=== PATIENT | male | born 1940 | race Caucasian/White ===

== ENCOUNTER 2018-10-18 07:44 | Emergency (ER) | payer MEDICARE ==
[2018-10-18 08:30] LABS: BASOPHILS % (AUTO) 0.3 % (0.0-5.0); EOSINOPHILS % (AUTO) 0.2 % (0.0-8.0); HEMATOCRIT 50.3 % (42-54); LYMPHOCYTES % (AUTO) 12.1 % (21.0-51.0); MEAN CORPUSCULAR HEMOGLOBIN 32.9 pg (27.0-33.0); MEAN CORPUSCULAR HGB CONC 33.7 g/dL (32.0-36.0); MEAN CORPUSCULAR VOLUME 97.7 fL (79-99); MONOCYTES % (AUTO) 5.7 % (3.0-13.0); NEUTROPHILS % (AUTO) 81.7 % (40.0-77.0); PLATELET COUNT (AUTO) 197 K/uL (130-400); RED BLOOD CELL COUNT(AUTO) 5.14 MIL/uL (4.50-6.20); RED CELL DISTRIBUTION WIDTH 14.3 % (11.0-15.5); WHITE BLOOD COUNT (AUTO) 7.7 K/uL (4.8-10.8)
[2018-10-18 08:37] LABS: CREATININE 1.3 mg/dL (0.5-1.5)
[2018-10-18 08:44] LABS: ALBUMIN 3.5 g/dL (3.5-5.0); BILIRUBIN,TOTAL 0.8 mg/dL (0.2-1.0); TOTAL PROTEIN, SERUM 7.2 g/dL (6.0-8.3)
[2018-10-18 08:50] LABS: APPEARANCE,URINE Clear (CLEAR); BILIRUBIN,URINE Negative (NEGATIVE); COLOR,URINE Dark Yellow (YELLOW); GLUCOSE, URINE (UA) Negative (NEGATIVE); KETONES,URINE Trace mg/dL (NEGATIVE); LEUKOCYTE ESTERASE ,URINE Small (NEGATIVE); NITRATE,URINE Negative (NEGATIVE); OCCULT BLOOD,URINE Moderate (NEGATIVE); PROTEIN,URINE POS 2+ (NEGATIVE)
[2018-10-18] MEDS ORDERED: LIDOCAINE HCL 2% VISCOUS 15 ML UDCUP ONE (09:23)
[2018-10-18] MEDS ORDERED: MAG HYDROX/AL HYDROX/SIMETH ES 30 ML SUSP UDCUP ONE (09:23)
[2018-10-18 09:24] LABS: BACTERIA,URINE Rare /HPF (None Seen); SQUAMOUS EPITHELIAL CELL,UR Rare /HPF (0-2); WBC,URINE 26-50 /HPF (0-1)
[2018-10-18] MEDS ORDERED: ASPIRIN 325 MG TABLET ONE (11:10)
== END 2018-10-18 11:34 | disposition home or self-care (01) ==
LOC: EDH 07:44
DX: I48.91 Unspecified atrial fibrillation (principal); I48.92 Unspecified atrial flutter; Z79.82 Long term (current) use of aspirin; Z79.899 Other long term (current) drug therapy
CPT/HCPCS: 36415; 71045; 80053; 81001; 84484; 85025; 87804; 93005

== ENCOUNTER → 2018-11-08 | Outpatient (CLI) | payer MEDICARE | END | disposition home or self-care (01) | LOC: SHCH 09:52 | PROVIDERS: ATTEND Internal Medicine Cardiovascular Disease | DX: I08.2 Rheumatic disorders of both aortic and tricuspid valves (principal); I48.0 Paroxysmal atrial fibrillation | CPT/HCPCS: 93306 ==

== ENCOUNTER → 2018-11-13 | Outpatient (CLI) | payer MEDICARE ==
[2018-11-13] MEDS: REGADENOSON 0.4 MG/5 ML PF SYG IVP SCH (09:57)
== END | disposition home or self-care (01) ==
LOC: SHCH 08:38
PROVIDERS: ATTEND Internal Medicine Cardiovascular Disease
DX: R07.9 Chest pain, unspecified (principal); I48.91 Unspecified atrial fibrillation; R94.39 Abnormal result of other cardiovascular function study
CPT/HCPCS: 78452; 93017; 96374; A9500 ×2; J2785

== ENCOUNTER 2019-03-29 12:00 | Observation (INO) | payer MEDICARE ==
[~2019-03-29] VITALS: Ht 180.3 cm; Wt 98.1 kg
[2019-03-29 13:14] LABS: BASOPHILS % (AUTO) 0.8 % (0.0-5.0); EOSINOPHILS % (AUTO) 1.8 % (0.0-8.0); LYMPHOCYTES % (AUTO) 20.7 % (21.0-51.0); MEAN CORPUSCULAR HEMOGLOBIN 33.6 pg (27.0-33.0); MEAN CORPUSCULAR HGB CONC 34.5 g/dL (32.0-36.0); MEAN CORPUSCULAR VOLUME 97.3 fL (79-99); MONOCYTES % (AUTO) 7.2 % (3.0-13.0); NEUTROPHILS % (AUTO) 69.5 % (40.0-77.0); PLATELET COUNT (AUTO) 207 K/uL (130-400); RED BLOOD CELL COUNT(AUTO) 5.25 MIL/uL (4.50-6.20); RED CELL DISTRIBUTION WIDTH 14.2 % (11.0-15.5); WHITE BLOOD COUNT (AUTO) 8.1 K/uL (4.8-10.8)
[2019-03-29 13:18] VITALS: BP 141/85
[2019-03-29 13:19] LABS: CREATININE 1.1 mg/dL (0.5-1.5); POTASSIUM 4.1 mmol/L (3.5-5.1)
[2019-03-29] MEDS ORDERED: NAPR220C15 PO (13:39)
[2019-03-29] MEDS ORDERED: TAMS-1 PO (13:39)
[2019-03-29] MEDS ORDERED: MULT-1077 PO (13:39)
[2019-03-29] MEDS ORDERED: FOSI10TA3 PO (13:39)
[2019-03-29] MEDS ORDERED: APIX5TAB PO (13:39)
[2019-03-29] MEDS ORDERED: OMEP-50 PO (13:39)
[2019-04-03] VITALS (25 sets, daily range): BP systolic 92–153; BP diastolic 51–79
[2019-04-03] MEDS ORDERED: LACTATED RINGERS 1000ML 1,000 ML IV ONE (06:06)
[2019-04-03] MEDS ORDERED: CEFAZOLIN SODIUM 1 GM VIAL ONE (06:25)
--- NOTE | 2019-04-03 06:47 | NUR ---
PAIN denies pain at rest has pain radiates down bryant lower extremities Addendum: 04/03/19 at 0650 by CHELO MALDONADO RN RN Amended: Links added.
--- NOTE | 2019-04-03 06:54 | NUR ---
PUPILS Bilateral cataract implants Addendum: 04/03/19 at 0657 by CHELO MALDONADO RN RN Amended: Links added.
[2019-04-03] MEDS ORDERED: SUCCINYLCHOLINE 200MG/10ML SYR ONE (07:01)
[2019-04-03] MEDS ORDERED: LIDOCAINE PF 2% 5ML ABBOJECT ONE ×2 (07:02→10:44)
[2019-04-03] MEDS ORDERED: FENTANYL CITRATE PF 50 MCG/1 ML 2ML VIAL ONE ×2 (07:02→10:53)
[2019-04-03] MEDS ORDERED: PROPOFOL 10 MG/ML 20ML VIAL IV ONE (07:02)
[2019-04-03] MEDS ORDERED: ROCURONIUM 10MG/1ML SYR 10 MG/ML ML ONE (07:02)
[2019-04-03] MEDS ORDERED: DEXAMETHASONE SOD PHOSPHATE 10MG/ML 1ML VIAL ONE (07:02)
[2019-04-03] MEDS ORDERED: BUPIVACAINE/EPI/PF 0.25% 30ML VIAL IJ ONE (07:10)
[2019-04-03] MEDS ORDERED: THROMBIN-JMI 20000 UNIT KIT TP ONE (07:11)
[2019-04-03] MEDS ORDERED: DURAMORPH PF1 MG/ML 10ML AMP IV ONE (07:11)
[2019-04-03] MEDS ORDERED: BACITRACIN 50,000 UNIT VIAL ONE (07:11)
[2019-04-03] MEDS ORDERED: CEFAZOLIN SODIUM 1 GM VIAL IVP ONE (08:00)
[2019-04-03] MEDS ORDERED: KETOROLAC TROMETHAMINE 30MG/ML ONE (10:44)
[2019-04-03] MEDS ORDERED: NEOSTIGMINE 5MG/5ML SYR IV ONE (10:44)
[2019-04-03] MEDS ORDERED: GLYCOPYRROLATE 1 MG/5 ML SYRINGE ONE (10:44)
[2019-04-03] MEDS ORDERED: ONDANSETRON HCL 4 MG/2 ML VIAL ONE (10:47)
[2019-04-03] MEDS ORDERED: ESMOLOL HCL 10 MG/ML 10 ML VIAL ONE (10:56)
[2019-04-03] MEDS: LACTATED RINGERS 1000ML 1,000 ML IV SCH ×2 (11:06→23:55)
[2019-04-03] MEDS ORDERED: PROMETHAZINE HCL 25 MG/ML 1ML AMPULE IM PRN (11:15)
[2019-04-03] MEDS ORDERED: MORPHINE SULFATE 2 MG/ML 1ML SYG IVP PRN (11:15)
[2019-04-03] MEDS: DEXAMETHASONE SOD PHOSPHATE 4 MG/ML 1ML VIAL IVP SCH ×3 (11:15→23:50)
[2019-04-03] MEDS ORDERED: HYDROCODONE/ACETAMINOPHEN 5/325 MG TAB PO PRN (11:15)
[2019-04-03] MEDS ORDERED: SODIUM CHLORIDE 0.9% 10 ML VIAL IVP PRN (11:15)
[2019-04-03] MEDS ORDERED: CEFAZOLIN SODIUM 1 GM VIAL IVP SCH (11:15)
[2019-04-03] MEDS ORDERED: MEPERIDINE-PF 25 MG/ML SYG ONE (11:31)
--- NOTE | 2019-04-03 14:20 | NUR ---
INITIAL MET W PT AND SON AT BEDSIDE, S/P SPINAL SURGERY PER DR. RAM. PT LIVE W SPOUSE WHO HAS ALZHEMIERS, AND HAS PRIVATE CARE FOR HER AND SUFFICIENT DME TO BORROW IF NEEDED. SON [place]IV[place] AND WILL PROVIDE TRANSPORT HOME- STATES DR. RAM DID NOT DISCUSS HH WITH HIM PER SE, BUT BELIEVES HE HAS NO NEED OF IT AND HAS SOMEONE TO LOOK AT THE INCISION IFNEEDED. PREVIOUSLY INDPENDENT, DRIVES, ETC. HOME HAS MANY STAIRS BUT SPOUSE AND PT ONLY USE MAIN FLOOR. FEELS SAFE TO RETURN TO SAME SITUATION; DCP HOME. CM TO FOLLOW Addendum: 04/04/19 at 0812 by LEELA BARCENAS RN CM Amended: Links added.
[2019-04-03] MEDS ORDERED: TAMSULOSIN HCL 0.4 MG CAP.ER.24H PO SCH (21:00)
--- NOTE | 2019-04-03 21:00 | NUR ---
ACTIVITY PATIENT WALKED WITH 2 MARINE TOWER OPERATOR (SON WAS WORRIED HE WOULD NOT TOLERATE WELL AND WANTED SOME MORE STANDING BY HELP IF NEEDED) AND SON ACCOMPANYING. WAKED IN HALLWAY ONCE AROUND FLOOR AND TOLERATED WELL.
[2019-04-04 03:47] VITALS: BP 116/67
[2019-04-04] MEDS: DEXAMETHASONE SOD PHOSPHATE 4 MG/ML 1ML VIAL IVP SCH (05:36)
--- NOTE | 2019-04-04 06:10 | NUR ---
ACTIVITY PATIENT WALKED WITH 2 TELEMARKETING FUNDRAISER ACCOMPANYING. HE DID WELL, STEADY GAIT. WALKED FAST AND TOLERATED WELL.
[2019-04-04 07:39] VITALS: BP 125/72
--- NOTE | 2019-04-04 08:30 | NUR ---
INSTRUCTIONS DISCHARGE INSTRUCTIONS GIVEN TO PATIENT USING TEACH BACK. IV HAS BEEN REMOVED WITH TIP INTACT. DIRECT PRESSURE APPLIED UNTIL BLEEDING CONTROLLED THEN SITE COVERED WITH GAUZE. F/U APPOINTMENT MADE. DRESSING CHANGED PER MD ORDER. YI DRAIN REMOVED WITH TIP INTACT. DIRECT PRESSURE APPLIED UNTIL BLEEDING CONTROLLED THEN SITE COVERED WITH GAUZE AND SECURED WITH TAPE. PATIENT TOLERATED WELL. PENDING RIDE HOME.
[2019-04-04] MEDS ORDERED: LISINOPRIL 10 MG TABLET PO SCH (09:00)
[2019-04-04] MEDS ORDERED: PANTOPRAZOLE SODIUM 40 MG TABLET.DR PO SCH (09:00)
[2019-04-04] MEDS ORDERED: MULTIVITAMIN TABLET PO SCH (09:00)
[2019-04-04] MEDS ORDERED: NAPROXEN SODIUM PO SCH (09:00)
== END 2019-04-04 10:23 | disposition home or self-care (01) ==
LOC: EDSTATUS 12:00 → DAHIP 04-03 05:52 → 4BH 04-03 12:04
PROVIDERS: ADMIT Neurological Surgery; ATTEND Neurological Surgery
DX: M48.061 Spinal stenosis, lumbar region without neurogenic claudication (principal); M35.3 Polymyalgia rheumatica; M67.40 Ganglion, unspecified site; D69.3 Immune thrombocytopenic purpura; I48.91 Unspecified atrial fibrillation; Z96.649 Presence of unspecified artificial hip joint; Z79.899 Other long term (current) drug therapy
CPT/HCPCS: 36415; 63047; 63048 ×2; 72020; 80048; 85025; 88304; 88311; 96374; 96375; 96376 ×2; A4344; A4649 ×4; G0378 ×23; J0330; J0690 ×2; J1100 ×4; J1885; J2001 ×2; J2175; J2274; J2405; J2704; J2710; J3010 ×2; J3490 ×3; J7030; J7120 ×2

== ENCOUNTER → 2019-07-26 | Outpatient (CLI) | payer MEDICARE ==
[~2019-07-26] MED LIST: APIX5TAB PO; FOSI10TA6 PO; MULT-1077 PO; NAPR220C15 PO; OMEP-50 PO; TAMS-1 PO
== END | disposition home or self-care (01) ==
LOC: RAH 07:32
PROVIDERS: ATTEND Internal Medicine Gastroenterology
DX: N20.0 Calculus of kidney (principal); N28.1 Cyst of kidney, acquired; I70.0 Atherosclerosis of aorta; K57.30 Diverticulosis of large intestine without perforation or abscess without bleeding; N40.0 Benign prostatic hyperplasia without lower urinary tract symptoms; M47.815 Spondylosis without myelopathy or radiculopathy, thoracolumbar region
CPT/HCPCS: 74178

== ENCOUNTER 2019-11-19 07:25 | Day surgery (SDC) | payer MEDICARE ==
[2019-11-14 15:38] LABS: BASOPHILS % (AUTO) 0.8 % (0.0-5.0); LYMPHOCYTES % (AUTO) 24.5 % (21.0-51.0); MEAN CORPUSCULAR HEMOGLOBIN 31.8 pg (27.0-33.0); MEAN CORPUSCULAR HGB CONC 32.9 g/dL (32.0-36.0); MEAN CORPUSCULAR VOLUME 96.8 fL (79-99); MONOCYTES % (AUTO) 9.7 % (3.0-13.0); NEUTROPHILS % (AUTO) 61.8 % (40.0-77.0); PLATELET COUNT (AUTO) 200 K/uL (130-400); RED BLOOD CELL COUNT(AUTO) 4.65 MIL/uL (4.50-6.20); RED CELL DISTRIBUTION WIDTH 14.4 % (11.0-15.5); WHITE BLOOD COUNT (AUTO) 6.6 K/uL (4.8-10.8)
[2019-11-14 15:49] LABS: CREATININE 1.2 mg/dL (0.5-1.5); POTASSIUM 4.3 mmol/L (3.5-5.1)
[2019-11-14 15:50] LABS: INR 1.03 (0.85-1.15); PROTHROMBIN TIME 11.1 SEC (9.6-11.6)
[2019-11-14 17:57] VITALS: BP 134/75
[~2019-11-19] VITALS: Ht 180.3 cm; Wt 92.6 kg
[2019-11-19] VITALS (15 sets, daily range): BP systolic 121–165; BP diastolic 62–98
[~2019-11-19 07:25] MED LIST changes: -MULT-1077 PO; -NAPR220C15 PO; -OMEP-50 PO; +OMEP20CA12 PO
[2019-11-19] MEDS: CEFTRIAXONE SODIUM 1 GM IVP SCH ×2 (08:30→10:15)
[2019-11-19] MEDS ORDERED: LACTATED RINGERS 1000ML 1,000 ML IV ONE (08:38)
[2019-11-19] MEDS ORDERED: OXYB5TAB15 PO (08:59)
[2019-11-19] MEDS ORDERED: MAGN200T4 PO (08:59)
[2019-11-19] MEDS ORDERED: DICY10CA13 PO (08:59)
[2019-11-19] MEDS ORDERED: MULT-1192 PO (08:59)
[2019-11-19] MEDS ORDERED: TUMERIC CURCUMIN PO (08:59)
[2019-11-19] MEDS ORDERED: COLON HEALTH PO (08:59)
[2019-11-19] MEDS ORDERED: IOHEXOL-350 50ML VIAL IV ONE (09:57)
[2019-11-19] MEDS ORDERED: ROCURONIUM 10MG/1ML SYR 10 MG/ML ML ONE (10:14)
[2019-11-19] MEDS ORDERED: LIDOCAINE PF 2% 5ML ABBOJECT ONE (10:14)
[2019-11-19] MEDS ORDERED: PROPOFOL 10 MG/ML 20ML VIAL IV ONE (10:14)
[2019-11-19] MEDS ORDERED: MIDAZOLAM HCL 1 MG/ML 2ML VIAL ONE (10:14)
[2019-11-19] MEDS ORDERED: FENTANYL CITRATE PF 50 MCG/1 ML 5ML AMP IV ONE (10:14)
[2019-11-19] MEDS ORDERED: DEXAMETHASONE SOD PHOSPHATE 10MG/ML 1ML VIAL ONE (10:15)
[2019-11-19] MEDS ORDERED: NEOSTIGMINE 5MG/5ML SYR IV ONE (10:15)
[2019-11-19] MEDS ORDERED: GLYCOPYRROLATE 1 MG/5 ML SYRINGE ONE (10:15)
[2019-11-19] MEDS ORDERED: ONDANSETRON HCL 4 MG/2 ML VIAL ONE (10:15)
[2019-11-19] MEDS ORDERED: EPHEDRINE SULFATE 50 MG/ML AMPULE ONE (10:37)
[2019-11-19] MEDS ORDERED: FENTANYL CITRATE PF 50 MCG/1 ML 2ML VIAL ONE (12:05)
[2019-11-19] MEDS ORDERED: MEPERIDINE-PF 25 MG/ML SYG ONE (12:08)
--- NOTE | 2019-11-19 13:25 | NUR ---
PATIENT ARRIVED TO DAY PATIENT VIA STRETCHER BY JACQUELINE KABA.PATIENT [id number], RESPIRATIONS UNLABORED, VITAL SIGNS STABLE, DENIES ANY PAIN AT THIS TIME. ALATORRE CATHETER IN PLACE, DRAINING PINK TINGED URINE.
--- NOTE | 2019-11-19 14:05 | NUR ---
DISCHARGE INSTRUCTIONS PROVIDED TO PATIENT AND PATIENT'S SON. FOLLOW UP APPOINTMENTS PROVIDED AND PRESCRIPTIONS PROVIDED WELL. INSTRUCTIONS PROVIDED AND HANDOUTS PROVIDED WELL.
--- NOTE | 2019-11-19 14:10 | NUR ---
ALATORRE CATHETER REMOVED, PATIENT TOLERATED WELL.
[2019-11-19] MEDS ORDERED: PHENAZOPYRIDINE HCL 200 MG TABLET ONE (14:17)
--- NOTE | 2019-11-19 14:40 | NUR ---
PATIENT DISCHARGED FROM FACILITY VIA WHEELCHAIR AND ASSISTED INTO PRIVATE VEHICLE DRIVEN BY PATIENT'S SON.
== END 2019-11-19 14:40 | disposition home or self-care (01) ==
LOC: DAH 07:25
PROVIDERS: ATTEND Urology
DX: N13.2 Hydronephrosis with renal and ureteral calculous obstruction (principal); I10 Essential (primary) hypertension; I48.20 Chronic atrial fibrillation, unspecified; K21.9 Gastro-esophageal reflux disease without esophagitis; Z98.890 Other specified postprocedural states; Z79.01 Long term (current) use of anticoagulants; Z79.899 Other long term (current) drug therapy; Z86.718 Personal history of other venous thrombosis and embolism
CPT/HCPCS: 36415 ×2; 52356; 74420; 80048; 82360; 85025; 85610; A4213; A4215; A4221; A4222; A4223; A4354; A4510; A4600; A4663; A5113; A6260; C1758; C1769; C2617; J0696; J1100; J2001; J2175; J2250; J2405; J2704; J2710; J3010 ×2; J3490 ×2; J7030; J7120 ×2; Q9967

== ENCOUNTER → 2022-01-11 | Outpatient (CLI) | payer MEDICARE ==
[~2022-01-11] MED LIST changes: +COLON HEALTH PO; +DICY10CA13 PO; -FOSI10TA6 PO; +FOSI10TA70 PO; +MAGN200T4 PO; +MULT-1192 PO; +OXYB5TAB15 PO; +TUMERIC CURCUMIN PO
== END | disposition home or self-care (01) ==
LOC: SHCH 14:40
PROVIDERS: ATTEND Internal Medicine Cardiovascular Disease
DX: I35.1 Nonrheumatic aortic (valve) insufficiency (principal); I48.0 Paroxysmal atrial fibrillation; I11.9 Hypertensive heart disease without heart failure
CPT/HCPCS: 93306

== ENCOUNTER → 2022-08-20 | Outpatient (CLI) | payer MEDICARE | END | disposition home or self-care (01) | LOC: RAH 14:41 | PROVIDERS: ATTEND Internal Medicine Cardiovascular Disease | DX: I62.02 Nontraumatic subacute subdural hemorrhage (principal) | CPT/HCPCS: 70450 ==

== ENCOUNTER → 2023-11-15 | Outpatient (CLI) | payer MEDICARE ==
[~2023-11-15] MED LIST changes: -DICY10CA13 PO; +DICY10CA2 PO; -OXYB5TAB15 PO; +OXYB5TAB20 PO
== END | disposition home or self-care (01) ==
LOC: LAB 11:51
PROVIDERS: ATTEND Internal Medicine Cardiovascular Disease
DX: I48.20 Chronic atrial fibrillation, unspecified (principal); Z79.01 Long term (current) use of anticoagulants
CPT/HCPCS: 36415; 80162